=== PATIENT | male | born 1995 | race Caucasian/White ===

== ENCOUNTER → 2017-10-09 | Outpatient (CLI) | payer OTHER | END | disposition home or self-care (01) | LOC: RD 13:29 | DX: Q74.1 Congenital malformation of knee (principal) ==

== ENCOUNTER → 2017-12-25 | Outpatient (CLI) | payer OTHER | END | disposition home or self-care (01) | LOC: MI 14:40 | PROC: BQ37ZZZ Magnetic Resonance Imaging (MRI) of Right Knee (ICD-10-PCS; principal; 2017-12-25) | DX: M25.561 Pain in right knee (principal) ==

== ENCOUNTER 2018-02-21 17:34 | Emergency (ER) | payer OTHER ==
[~2018-02-21] VITALS: Ht 185.4 cm; Wt 114.3 kg
[2018-02-21 17:37] VITALS: Ht 185.4 cm; Wt 114.3 kg
[2018-02-21 18:11] LABS: microscopic required? NO
[2018-02-21 18:57] LABS: urine erythrocyte NEGATIVE (NEGATIVE)
[2018-02-21 19:48] VITALS: BP 130/78
== END 2018-02-21 19:48 | disposition home or self-care (01) ==
LOC: ED 17:34
PROVIDERS: Emergency Medicine
PROC: BV44ZZZ Ultrasonography of Scrotum (ICD-10-PCS; principal; 2018-02-21)
DX: N50.812 Left testicular pain (principal)
CPT/HCPCS: 87491; 87591; Q0092

== ENCOUNTER 2018-03-09 08:50 | Day surgery (SDC) | payer OTHER ==
[2018-03-05 14:49] LABS: CALCIUM 9.6 mg/dL (8.5-10.1); CHLORIDE SERUM 106 mmol/L (98-107); CREATININE SERUM 1.1 mg/dL (0.7-1.3); GFR1 > 60 mL/min; GLUCOSE SERUM 104 mg/dL (74-106); POTASSIUM SERUM 3.9 mmol/L (3.5-5.1); SODIUM SERUM 140 mmol/L (136-145)
[2018-03-05 14:50] LABS: microscopic required? YES; urine erythrocyte NEGATIVE (NEGATIVE)
[2018-03-05 14:53] LABS: BASOPHIL % 0.4 % (0-2); PLATELET COUNT 271 x10^3mcL (130-400); RED CELL DISTRIBUTION WIDTH 13.1 % (11.5-14.5)
[~2018-03-09] VITALS: Ht 185.4 cm; Wt 113.4 kg
[2018-03-09 09:23] VITALS: BP 139/76
[2018-03-09 16:37] VITALS: BP 134/83
== END 2018-03-09 16:30 | disposition home or self-care (01) ==
LOC: DS 08:50 → OR 10:30 → DS 16:30
PROVIDERS: Neuromusculoskeletal Medicine, Sports Medicine
PROC: 0SCC0ZZ Extirpation of Matter from Right Knee Joint, Open Approach (ICD-10-PCS; principal; 2018-03-09 10:30)
DX: S82.001K Unspecified fracture of right patella, subsequent encounter for closed fracture with nonunion (principal); X58.XXXD Exposure to other specified factors, subsequent encounter
CPT/HCPCS: 76001; J0690; J2175; J2250; J2405; J2704; J3010; J3490; J7120

== ENCOUNTER 2018-06-28 16:00 | Emergency (ER) | payer OTHER ==
[~2018-06-28] VITALS: Ht 182.9 cm; Wt 99.8 kg
[2018-06-28 16:05] VITALS: Ht 182.9 cm; Wt 99.8 kg
[2018-06-28 18:09] VITALS: BP 134/74
== END 2018-06-28 18:09 | disposition home or self-care (01) ==
LOC: ED 16:00
DX: S61.210A Laceration without foreign body of right index finger without damage to nail, initial encounter (principal); S61.011A Laceration without foreign body of right thumb without damage to nail, initial encounter; W23.0XXA Caught, crushed, jammed, or pinched between moving objects, initial encounter; Y93.89 Activity, other specified; Y92.89 Other specified places as the place of occurrence of the external cause; Y99.8 Other external cause status
CPT/HCPCS: 90715; J2001

== ENCOUNTER 2020-06-26 18:20 | Emergency (ER) | payer BC, SELFPAY ==
[~2020-06-26] VITALS: Ht 182.9 cm; Wt 106.6 kg
[2020-06-26 19:34] VITALS: Ht 182.9 cm; Wt 106.6 kg
[2020-06-26 20:03] VITALS: BP 125/85
== END 2020-06-26 20:03 | disposition home or self-care (01) ==
LOC: ED 18:20
DX: U07.1 COVID-19 (principal); Z98.890 Other specified postprocedural states
CPT/HCPCS: U0003